=== PATIENT | female | born 1985 | race African-American/Black ===

== ENCOUNTER 2017-07-27 07:29 | Inpatient (IN) | payer OTHER ==
[2017-07-27] MEDS ORDERED: ELECTROLYTE-148 SOLN 1,000 ML IV ONE (08:00)
[2017-07-27] MEDS ORDERED: CITRIC ACID/SODIUM CITRATE 30 ML UNIT-DOSE CUP PO ONE (08:05)
[2017-07-27 08:28] VITALS: BMI 43.8
[2017-07-27] MEDS ORDERED: PHENYLEPHRINE HCL 10 MG/1 ML SINGLE DOSE VIAL ONE (08:33)
[2017-07-27] MEDS ORDERED: morphine SULFATE/Preservative Free 0.5 MG/ML (1cc Syringe) ONE (08:33)
[2017-07-27] MEDS ORDERED: ceFAZolin SODIUM 1 GM VIAL ONE (08:33)
[2017-07-27] MEDS ORDERED: ePHEDrine SULFATE 50 MG/1 ML AMPULE ONE (08:34)
[2017-07-27] MEDS ORDERED: OXYTOCIN 20 UNITS in 0.9% NS 20 UNIT/1,000 ML INFUS.BAG IV ONE ×2 (09:04→09:31)
--- NOTE | 2017-07-27 09:32 | HP ---
Past Medical History - Primary Care Physician PCP:: Quinton Elena - Admission Chief Complaint: 32yo P1 with at EGA 39w 2d admitted for repeat LT C/ S. History of Present Illness: complicated by prior C/S, morbid obesity, prior migraines. GBS(+) History Source: Patient, Medical Record Limitations to Obtaining History: No Limitations - Past Medical History COLLECTION OFFICER: Yes: Migraine Cardiovascular: No: AFIB, Aneurysm, Aortic Insufficiency, Aortic Stenosis, CAD, CHF, Deep Vein Thrombosis, HTN, Hyperlipdemia, PA, Mitral Insufficiency, Mitral Stenosis, Murmur, Pulmonary Hypertension, Other Pulmonary: Yes: Asthma Gastrointestinal: No: Ascites, Cancer, Constipation, Crohn's Disease, Diverticulitis, Diverticulosis, Esophageal Varices, Gastritis, GERD, GI Bleed, Hemorrhoids, Hiatal Hernia, Inflamatory Bowel Disease, Irritable Bowel Disease, Pancreatitis, Peptic Ulcer Disease, Ulcerative Colitis, Other Hepatobiliary: No: Cirrhosis, Cholelithiasis, Cholecystitis, Choledocholithiasis , Hepatitis A, Hepatitis B, Hepatitis C, Other Renal/: No: Renal Failure, Renal Inusuff, BPH, Cancer, Hematuria, Hemodialysis , Neurogenic Bladder, Renal Calculi, UTI, Other Reproductive: No: Ectopic , Endometriosis, Fibroids, PID, Polycystic Ovary Syndrome, Postmenopausal, Other ...: 2 ...Para: 1 ...Term: 1 ...: 0 ...Spon : 0 ...Induced : 0 ...Multiple Gestation: 0 ...LMP: 10/22/16 ... Weeks Gestation by Dates: 39.2 ...EDC by Dates: 08/01/17 Heme/Onc: No: Anemia, B12 Deficiency, Bleeding Disorder, Cancer, Current Chemotherapy, Current Radiation Therapy, Hemochromatosis, Hypercoaguable State, Myeloproliferative Synd, Sickle Cell Disease, Sickle Cell Trait, Thrombocytopenia, Other Infectious Disease: No: AIDS, C-Diff, Herpes Zoster, HIV, MRSA, STD's, Tuberculosis, VREF, Other Psych: No: Addictions, Anxiety, Bipolar, Depression, Panic, Psychosis, Schizophrenia, Other Musculoskeletal: No: Bursitis, Chronic low back pain, Hemiparesis, Hemiplegia, Osteoarthritis, Paraplegia, Other Rheumatology: No: Fibromyalgia, Gout, Lupus, Rheumatoid Arthritis, Sarcoidosis, Vasculitis, Other ENT: No: Allergic Rhinitis, Sinusitis, Other Endocrine: No: [place]'s Disease, Karime's Disease, Diabetes Insipidus, Diabetes Mellitus, Hyperparathyroidism, Hyperthyroidism, Hypothyroidism, Osteopenia, SIADH, Other Dermatology: No: Basal Cell, Cellulitis, Eczema, Melanoma, Psoriasis, Squamous Cell, Other - Past Surgical History Past Surgical History: Yes: (x 1) Hx Myomectomy: No Hx Transabdominal Cerclage: No - Smoking History Smoking history: Never smoked Have you smoked in the past 12 months: No - Alcohol/Substance Use Hx Alcohol Use: No History of Substance Use: reports: None - Social History Usual Living Arrangement: Yes: With Child ADL: Independent History of Recent Travel: No Home Medications - Allergies Allergies/Adverse Reactions: Allergies Allergy/AdvReac Type Severity Reaction Status Date / Time No Known Allergies Allergy Verified 07/27/17 08:43 - Home Medications Home Medications: Ambulatory Orders Vit 108/Iron/Folic AC [ One Tablet] 1 tab PO DAILY 07/27/17 Family Disease History - Family Disease History Family Disease History: Diabetes: Mother (a. fib, asthma, crohn's ), Respiratory : Mother Review of Systems - Review of Systems Constitutional: reports: No Symptoms Eyes: reports: No Symptoms HENT: reports: No Symptoms Neck: reports: No Symptoms Cardiovascular: reports: No Symptoms Respiratory: reports: No Symptoms Gastrointestinal: reports: No Symptoms Genitourinary: reports: No Symptoms Breasts: reports: No Symptoms Reported Musculoskeletal: reports: No Symptoms Integumentary: reports: No Symptoms Neurological: reports: No Symptoms Endocrine: reports: No Symptoms Hematology/Lymphatic: reports: No Symptoms Psychiatric: reports: No Symptoms Pain Intensity: 0 Physical Exam - Maternity Vital Signs: Vital Signs Temperature 97.9 F 07/27/17 07:29 Pulse Rate 90 07/27/17 07:29 Respiratory Rate 18 07/27/17 07:29 Blood Pressure 125/70 07/27/17 07:29 O2 Sat by Pulse Oximetry (%) Constitutional: Yes: No Distress, Calm, Obese Eyes: Yes: WNL, Conjunctiva Clear HENT: Yes: WNL, Atraumatic, Normocephalic Neck: Yes: WNL, Supple, Trachea Midline Cardiovascular: Yes: WNL, Regular Rate and Rhythm Lungs: Clear to auscultation - Abdominal Exam/OB Number of Fetuses: Single Presentation: Vertex Contractions: No Heart Rate (range): 130 Heart Rate Location: Midline Category: I Accelerations: Non-Uniform Decelerations: None - Vaginal Exam/OB Vaginal Bleediing: No Speculum Exam: No Amniotic Membrane Status: Intact Presentation: Vertex/Position - Physical Exam Musculoskeletal: Yes: WNL Extremities: Yes: WNL Edema: No Integumentary: Yes: WNL Deep Tendon Reflex Grade: Normal +2 ...Motor Strength: WNL Psychiatric: Yes: WNL, Alert, Oriented Hemorrhage Risk Assessment - Risk Factors Medium Risk Factors: Yes: Prior , uterine surgery,or multiple laparotomies, Obesity (BMI >40) High Risk Factors: Yes: None Risk Score: 2 Risk Level: High Risk Imaging - Results Ultrasound: Report Reviewed Assessment/Plan 32yo P1 with at EGA 39w2d admitted for repeat C/S. The pt declined . We discussed the risks and benefits of C/S at length, including but not limited to scarring, pain, bleeding, infection, injury to underlying organs and structures, need for additional surgery to repair/treat any problems or complications, complications/injuries, etc. Increased risks due to morbid obesity explained. The pt verbalized her understanding and requested to proceed with surgery. The pt is aware that all surgeries have risks and no guarantees can be provided.
[2017-07-27] MEDS ORDERED: BUPIVACAINE 0.75% IN DEXTROSE/PF 2ML AMPULE NR ONE (09:42)
[2017-07-27] MEDS ORDERED: ENOXAPARIN NA (PORCINE) 40 MG/0.4 ML DISP.SYRIN SQ SCH (10:00)
[2017-07-27] MEDS ORDERED: ONDANSETRON 4 MG/2 ML VIAL IVPUSH PRN (11:01)
[2017-07-27] MEDS ORDERED: morphine SULFATE/Preservative Free 0.5 MG/ML (1cc Syringe) IT ONE (11:01)
[2017-07-27] MEDS ORDERED: oxyCODONE HCL 5 MG TABLET PO PRN ×2 (11:23)
[2017-07-27] MEDS ORDERED: IBUPROFEN 800 MG/8 ML IJ IVPB PRN (11:23)
[2017-07-27] MEDS ORDERED: METHYLERGONOVINE MALEATE 0.2 MG/1 ML AMP IM PRN (11:23)
[2017-07-27] MEDS ORDERED: OXYTOCIN 20 UNITS in 0.9% NS 20 UNIT/1,000 ML INFUS.BAG IV SCH (11:30)
--- NOTE | 2017-07-27 11:45 | OP ---
Operative Note - Note: Operative Date: 07/27/17 Pre-Operative Diagnosis: at 39w 2d with prior C/S. Morbid obesity Operation: Repeat LT C/S Findings: Multiple dense adhesions b/w abdominal wall and uterus, bladder, omentum. Live baby girl in vtx presentation. No meconium in amniotic fluid Nuchal cord x 1 Normal ovaries, uterus, tubes Post-Operative Diagnosis: Same as Pre-op Surgeon: Quinton Elena Accounts Executive: Geovanna Gould Anesthesiologist/TIP FIXER: Yury Leal Anesthesia: Spinal Specimens Removed: Placenta Estimated Blood Loss (mls): 1,000 Drains & Tubes with Location: Massey cath Drains, Volume Out (mls): 200 Blood Volume Replaced (mls): 0 Fluid Volume Replaced (mls): 2,900 Operative Report Dictated: Yes
--- NOTE | 2017-07-27 11:56 | PN ---
Delivery - Delivery Section: Repeat, Low Flap Transverse Type of Anesthesia: Spinal Episiotomy/Laceration: None EBL (cc): 1,000 Delivery, Single - Stages of Labor Date of Delivery: 07/27/17 Time of Delivery: Date Placenta Delivered: 07/27/17 Time Placenta Delivered: Placenta: Yes: Manual Removal, Normal Configuration - Condition of Manager Study/Tool Design Draftsperson Present: Yes Name: Winter [place] Infant Gender: Female Weight: 3.487 kg Position: Left, OT Total Hours ROM (Hrs/Mins): 2 mins - 1 Minute Total Score: 9 5 Minutes Total Score: 8 - Feeding Plan Initial Plan: Elected not to breastfeed exclusively throughout hospitalization Benefits of Exclusively reinforced: Yes Remarks - Remarks Remarks: Adhesions b/w anterior abdominal wall, omentum, uterus, bladder.
[2017-07-27 13:00] LABS: VENOUS PH 7.13 (7.32-7.42)
[2017-07-27 13:01] LABS: VENOUS PO2 6.7 mmHg (28-48)
[2017-07-27 13:06] LABS: ARTERIAL BLOOD GAS BASE EXCESS -4.1 meq/l (-2-2); ARTERIAL BLOOD GAS PCO2 51.7 mmHg (35-45); ARTERIAL BLOOD GAS pH 7.27 (7.35-7.45)
[2017-07-27 13:16] LABS: ARTERIAL BLOOD GAS PO2 27.3 mmHg (80-100)
--- NOTE | 2017-07-27 14:10 | OP ---
DATE OF OPERATION: 07/27/2017 PREOPERATIVE DIAGNOSIS: at estimated gestational age of 39 weeks 2 days, previous section, morbid maternal obesity complicating care and delivery. POSTOPERATIVE DIAGNOSIS: at estimated gestational age of 39 weeks 2 days, previous section, morbid maternal obesity complicating care and delivery, delivered. PROCEDURE: Repeat low transverse section via Pfannenstiel skin incision. SURGEON: Quinton Elena MD CIGARETTE CATCHER: Geovanna Gould MD ANESTHESIOLOGIST: Yury Leal MD ANESTHESIA: Spinal. FLUIDS: 2900 mL crystalloid. ESTIMATED BLOOD LOSS: 1000 mL. URINE OUTPUT: 200 mL clear urine at the end of the procedure. PATHOLOGY: Placenta. FINDINGS: Multiple dense adhesions between the abdominal wall and the uterus, bladder, omentum. The uterus is normal. The fallopian tubes and ovaries are normal bilaterally. Live baby girl was delivered from vertex presentation. There was a nuchal cord wrapped around once, and it was released without difficulty. There was no meconium in amniotic fluid. DESCRIPTION OF PROCEDURE: The patient was met preoperatively. Risks, benefits, and alternatives of surgery were discussed in detail. All questions were answered. The increased risks due to morbid obesity and prior abdominal surgery were discussed. All questions were answered, and the patient verbalized her understanding. The patient then requested to proceed with surgery. She was brought to the OR with the IV running. The patient was placed on the surgical table in the sitting position. The spinal anesthesia was placed without difficulty. The patient was then placed on a surgical table in a supine position with a leftward tilt. She was prepped and draped in the usual sterile fashion. A Massey catheter was left to drain to gravity. A Pfannenstiel skin incision was then made with a knife along the prior scar. The incision was taken down to the level of the fascia. Judicious use of cautery was required to maintain hemostasis. The fascia was incised in the midline. The incision was extended bilaterally using Barraza scissors. The fascia was then superiorly and inferiorly from the rectus muscles. The rectus muscles were in the midline using sharp dissection. The peritoneum was identified and entered sharply. Peritoneal adhesions were lysed between the anterior abdominal wall, the omentum, the uterus, and the bladder. The peritoneal incision was extended superiorly and inferiorly. The bladder peritoneum was dissected away from the lower uterine segment. The bladder was reflected downwards. An Silas O retractor was then placed inside the incision. Excellent visualization of the operative site was achieved. The uterus was incised transversely along the lower uterine segment. The incision was then extended bluntly. The baby was delivered from vertex presentation without complications. The placenta was removed manually and without complications. The uterus was cleared of all clots and debris using dry laparotomy laps. The uterine incision was repaired using a 0 Biosyn suture with a running, locking stitch. Good hemostasis was noted. The uterine incision was then imbricated using a 0 Biosyn suture with a running, locking stitch with good hemostasis and approximation. Once again, good hemostasis was confirmed. The uterus was noted to be well contracted. The operative site was irrigated using copious amounts of normal saline. Once the saline was aspirated, good hemostasis was confirmed. The abdominal peritoneum was then closed using a 2-0 chromic suture. The rectus muscles were also approximated using several interrupted 2-0 chromic sutures. The fascia was closed using a 0 Vicryl suture with a running stitch in 2 segments. The subcutaneous adipose tissues were closed with a 0 Vicryl suture in several layers. The skin was closed using a 3-0 Vicryl with a subcutaneous stitch. Sponge, lap, and needle counts were correct. The patient tolerated the procedure well. She was transferred to the recovery room in stable condition and awake. Neal [id number]
[2017-07-27] MEDS: ceFAZolin 2 GRAM PREMIX BAG IVPB SCH (18:39)
[2017-07-27] MEDS ORDERED: diphenhydrAMINE HCL 25 MG CAPSULE (FP) PO PRN (21:14)
[2017-07-28] MEDS: ceFAZolin 2 GRAM PREMIX BAG IVPB SCH ×2 (02:33→09:00)
--- NOTE | 2017-07-28 08:23 | PN ---
Progress Note (short form) - Note Progress Note: Post op day#1.S/P C section under spinal anesthesia with Duramorph uneventful.Patient stable and has little pain for which she is on medication.No any anesthesia related problem.Patient DC from the anesthesia care.
[2017-07-28 08:34] LABS: BASO % 0.3 % (0-2.0); HEMATOCRIT 25.7 % (32.4-45.2); HEMOGLOBIN 8.5 GM/dL (10.7-15.3); LYMPH % 11.9 % (8-40); MCH 28.5 pg (25.7-33.7); MCHC 33.3 g/dl (32.0-36.0); MEAN CELL VOLUME 85.7 fl (80-96); MEAN PLT VOLUME 7.9 fl (7.5-11.1); MONO % 6.9 % (3.8-10.2); NEUT % 79.9 % (42.8-82.8); PLATELET COUNT 154 K/MM3 (134-434); RDW 14.1 % (11.6-15.6); WHITE BLOOD COUNT 7.9 K/mm3 (4.0-10.0)
[2017-07-28] MEDS: SIMETHICONE 80 MG TAB.CHEW (FP) PO PRN ×2 (08:56→16:28)
[2017-07-28] MEDS: ACETAMINOPHEN 325 MG TABLET (FP) PO PRN ×2 (08:57→18:17)
[2017-07-28] MEDS: IBUPROFEN 600 MG TABLET (FP) PO PRN ×2 (08:58→18:16)
[2017-07-28] MEDS: ENOXAPARIN NA (PORCINE) 40 MG/0.4 ML DISP.SYRIN SQ SCH (09:00)
[2017-07-28] MEDS ORDERED: BISACODYL 10 MG SUPP.RECT RC PRN (11:23)
[2017-07-29] MEDS: IBUPROFEN 600 MG TABLET (FP) PO PRN ×4 (00:42→17:31)
[2017-07-29] MEDS: ACETAMINOPHEN 325 MG TABLET (FP) PO PRN ×4 (00:43→17:32)
[2017-07-29] MEDS: SIMETHICONE 80 MG TAB.CHEW (FP) PO PRN ×4 (00:44→17:31)
[2017-07-29 07:35] LABS: EOS % 1.7 % (0-4.5); HEMATOCRIT 26.4 % (32.4-45.2); LYMPH % 17.9 % (8-40); MCH 28.7 pg (25.7-33.7); MCHC 34.2 g/dl (32.0-36.0); MEAN CELL VOLUME 83.9 fl (80-96); MEAN PLT VOLUME 8.2 fl (7.5-11.1); MONO % 6.4 % (3.8-10.2); PLATELET COUNT 170 K/MM3 (134-434); RBC 3.15 M/mm3 (3.60-5.2); RDW 14.4 % (11.6-15.6)
--- NOTE | 2017-07-29 08:31 | PN ---
Post Progress Note - Subjective Subjective: No complaints Post Day: 2 Type of Delivery: Repeat C/S Vital Signs: Vital Signs Temperature 98.6 F 07/28/17 21:07 Pulse Rate 82 07/28/17 21:07 Respiratory Rate 20 07/28/17 21:07 Blood Pressure 102/52 07/28/17 21:07 O2 Sat by Pulse Oximetry (%) 100 07/27/17 12:35 Breast Exam: Yes: Soft Uterus: Yes: Fundus Firm, Fundus below umbilicus, Non-tender Incision: Yes: Sutures intact Abdomen/GI: Yes: Abdomen soft, Passing flatus, Tolerating PO Lochia: Yes: Rubra Lochia, amount: Small Extremities: Yes: Calves non-tender Perineum: Yes: Intact Activity: Ambulating - Labs Labs: CBC WBC 8.0 K/mm3 (4.0-10.0) 07/29/17 07:00 RBC 3.15 M/mm3 (3.60-5.2) L 07/29/17 07:00 Hgb 9.0 GM/dL (10.7-15.3) L 07/29/17 07:00 Hct 26.4 % (32.4-45.2) L 07/29/17 07:00 MCV 83.9 fl (80-96) 07/29/17 07:00 MCH 28.7 pg (25.7-33.7) 07/29/17 07:00 MCHC 34.2 g/dl (32.0-36.0) 07/29/17 07:00 RDW 14.4 % (11.6-15.6) 07/29/17 07:00 Plt Count 170 K/MM3 (134-434) 07/29/17 07:00 MPV 8.2 fl (7.5-11.1) 07/29/17 07:00 Neutrophils % 73.0 % (42.8-82.8) 07/29/17 07:00 Lymphocytes % 17.9 % (8-40) D 07/29/17 07:00 Monocytes % 6.4 % (3.8-10.2) 07/29/17 07:00 Eosinophils % 1.7 % (0-4.5) 07/29/17 07:00 Basophils % 1.0 % (0-2.0) D 07/29/17 07:00 Assessment/Plan 32yo POD#2 s/p repeat LTC/S doing well, stable, afebrile. Asymptomatic for anemia. Post op care reviewed. Continue routine care. Ambulation encouraged Advance diet as tolerated.
[2017-07-29] MEDS: ENOXAPARIN NA (PORCINE) 40 MG/0.4 ML DISP.SYRIN SQ SCH (09:48)
[2017-07-30] MEDS: ACETAMINOPHEN 325 MG TABLET (FP) PO PRN ×2 (02:41→12:28)
[2017-07-30] MEDS: SIMETHICONE 80 MG TAB.CHEW (FP) PO PRN ×3 (02:41→12:28)
[2017-07-30] MEDS: IBUPROFEN 600 MG TABLET (FP) PO PRN ×2 (02:41→12:28)
[2017-07-30 08:01] LABS: BASO % 0.3 % (0-2.0); EOS % 3.1 % (0-4.5); HEMATOCRIT 25.6 % (32.4-45.2); HEMOGLOBIN 8.6 GM/dL (10.7-15.3); LYMPH % 27.5 % (8-40); MCH 28.7 pg (25.7-33.7); MCHC 33.8 g/dl (32.0-36.0); MEAN CELL VOLUME 84.8 fl (80-96); MEAN PLT VOLUME 8.4 fl (7.5-11.1); MONO % 7.6 % (3.8-10.2); NEUT % 61.5 % (42.8-82.8); PLATELET COUNT 183 K/MM3 (134-434); RBC 3.01 M/mm3 (3.60-5.2); RDW 14.5 % (11.6-15.6); WHITE BLOOD COUNT 6.3 K/mm3 (4.0-10.0)
[2017-07-30 09:08] VITALS: BP 112/59; PULSE 78; TEMP 97.6
--- NOTE | 2017-07-30 09:10 | PN ---
Post Progress Note - Subjective Subjective: Patient without acute complaints. Reports tolerating oral intake without nausea or vomiting. Ambulating without dizziness. Denies fevers or chills. Pain well controlled with oral pain medication. without difficulty. Passing flatus. Post Day: 3 Type of Delivery: Repeat C/S Vital Signs: Vital Signs Temperature 97.3 F L 07/29/17 22:00 Pulse Rate 82 07/29/17 22:00 Respiratory Rate 20 07/29/17 22:00 Blood Pressure 116/63 07/29/17 22:00 O2 Sat by Pulse Oximetry (%) 100 07/27/17 12:35 Breast Exam: Yes: Engorged Uterus: Yes: Fundus Firm Incision: Yes: Sutures intact. No: Redness, Oozing Abdomen/GI: Yes: Abdomen soft, Tender (mild incisional), Passing flatus, Tolerating PO Lochia: Yes: Serosa Lochia, amount: Small Extremities: Yes: Calves non-tender, Edema (trace) Activity: Ambulating - Labs Labs: CBC WBC 6.3 K/mm3 (4.0-10.0) 07/30/17 06:30 RBC 3.01 M/mm3 (3.60-5.2) L 07/30/17 06:30 Hgb 8.6 GM/dL (10.7-15.3) L 07/30/17 06:30 Hct 25.6 % (32.4-45.2) L 07/30/17 06:30 MCV 84.8 fl (80-96) 07/30/17 06:30 MCH 28.7 pg (25.7-33.7) 07/30/17 06:30 MCHC 33.8 g/dl (32.0-36.0) 07/30/17 06:30 RDW 14.5 % (11.6-15.6) 07/30/17 06:30 Plt Count 183 K/MM3 (134-434) 07/30/17 06:30 MPV 8.4 fl (7.5-11.1) 07/30/17 06:30 Neutrophils % 61.5 % (42.8-82.8) 07/30/17 06:30 Lymphocytes % 27.5 % (8-40) D 07/30/17 06:30 Monocytes % 7.6 % (3.8-10.2) 07/30/17 06:30 Eosinophils % 3.1 % (0-4.5) D 07/30/17 06:30 Basophils % 0.3 % (0-2.0) 07/30/17 06:30 Assessment/Plan 32 yo POD #3 s/p repeat CD, afebrile, vital signs stable with asymptomatic anemia, doing well 1. Patient is unsure if she would like to go home today, however is stable for discharge home. 2. Patient encouraged to contact MD for: - Severe pain not controlled by oral pain medication - Fevers or chills - Nausea or vomiting, intolerance of oral intake - Incision redness, tenderness or discharge 3. Patient to follow up in office in 1-2 weeks for incision check, 4-6 weeks for visit
[2017-07-30] MEDS: ENOXAPARIN NA (PORCINE) 40 MG/0.4 ML DISP.SYRIN SQ SCH (09:29)
--- NOTE | 2017-08-03 14:57 | PATH ---
Surgical Pathology Report Patient Name: WILLA BOLANOS [facility]. Rec. #: [id number] /Age/Gender: 1985 (Age: 32) / F Account: [id number] Location: [facility] OBS/ASSIGNMENT DESK EDITOR Taken: 07/27/2017 Received: 07/28/2017 Reported: 08/03/2017 Physicians: Quinton Elena M.D. Specimen(s) Received PLACENTA Clinical History 39.2 week gestation, repeat Final Diagnosis PLACENTA, SECTION: 450 g THIRD TRIMESTER PLACENTA WITH TRIVASCULAR UMBILICAL CORD AND UNREMARKABLE PLACENTAL MEMBRANES. Electronically Signed Yolanda Arreola M.D. Gross Description The specimen is received fresh labeled placenta and is a 450 gram, 16.5 x 15.0 x 2.7 cm. placenta with attached membranes and umbilical cord. The attached membranes are boles, translucent with focal opacities and insert marginally. The umbilical cord measures 15 cm. in length and averages 1 cm. in diameter. The cord inserts eccentrically, 4 cm. to the nearest margin. No true knots or strictures are identified. Cut surface of the umbilical cord reveals 3 vessels. The surface is cardoso-blue with minimal fibrin deposition and appropriate caliber vessels. The maternal surface is red-brown with focal defects. Sectioning reveals red-brown, spongy parenchyma. No lesions are identified. Remediation Project Engineer sections are submitted in three cassettes as follows: 1- membrane rolls and umbilical cord; 2-3- full thickness sections of placenta. 07/29/2017 [facility]07/29/2017
== END 2017-07-30 15:00 | disposition home or self-care (01) | DRG 540 ==
LOC: JLDR 07:29 → J3W 13:29
PROVIDERS: ADMIT Obstetrics & Gynecology; ATTEND Obstetrics & Gynecology
PROC: 10D00Z1 Extraction of Products of Conception, Low, Open Approach (ICD-10-PCS; principal; 2017-07-27)
DX: O34.219 Maternal care for unspecified type scar from previous cesarean delivery (principal); O99.214 Obesity complicating childbirth; E66.01 Morbid (severe) obesity due to excess calories; Z68.41 Body mass index [BMI] 40.0-44.9, adult; O99.824 Streptococcus B carrier state complicating childbirth; Z3A.39 39 weeks gestation of pregnancy; Z37.0 Single live birth
CPT/HCPCS: 36415; 36600; 82803; 85025; 88307-TC